=== PATIENT | female | born 1990 | race Hispanic/Latino ===

== ENCOUNTER 2017-01-05 23:56 | Emergency (ER) | payer OTHER ==
[~2017-01-05] VITALS: Ht 165.1 cm; Wt 71.7 kg
[2017-01-06] MEDS ORDERED: ZOLO50TA PO (00:16)
[2017-01-06 02:31] VITALS: BP 102/54
[2017-01-06] MEDS ORDERED: AUGMENTIN 875 MG TAB As Ordered ONE (02:49)
[2017-01-06] MEDS ORDERED: AUGM875T27 PO (02:49)
[2017-01-06] MEDS ORDERED: AUGMENTIN 875 MG TAB PO ONE (03:00)
== END 2017-01-06 02:54 | disposition home or self-care (01) ==
LOC: M ED 01-06 00:59
DX: O99.89 Other specified diseases and conditions complicating pregnancy, childbirth and the puerperium (principal); J02.0 Streptococcal pharyngitis; J04.0 Acute laryngitis; Z79.899 Other long term (current) drug therapy

== ENCOUNTER 2017-04-03 03:22 | Inpatient (IN) | payer OTHER ==
[~2017-04-03] VITALS: Ht 165.1 cm; Wt 75.0 kg
[2017-04-03] VITALS (9 sets, daily range): BP systolic 111–132; BP diastolic 55–89
[~2017-04-03 03:22] MED LIST: AUGM875T27 PO; ZOLO50TA PO
[2017-04-03] MEDS ORDERED: LACTATED RINGER'S 1000 ML IV STA (04:06)
[2017-04-03 04:19] LABS: MEAN CORPUSCULAR HEMOGLOBIN 28.7 pg (27.0-33.0); MEAN CORPUSCULAR HGB CONC 34.6 g/dl (32.0-36.5); MEAN CORPUSCULAR VOLUME 82.9 fl (80.0-96.0); RED CELL DISTRIBUTION WIDTH 15.7 % (11.5-14.5); WHITE BLOOD COUNT 5.3 K/mm3 (4.0-10.0)
--- NOTE | 2017-04-03 04:32 | HPEPDOC ---
Obstetrical History & Physical General Date of Admission Apr 03, 2017 at 03:44 History of Present Illness 26 y/o at 38+3 with painful reg ctx's. Pos FM. No LOF/VB. Checked by RN and was 8 cm/BBOW. My recheck was C/0/BBOW. AROM with clr fluid at my first exam. Uncomplicated OB hx. Depression, On Zoloft. Abdominoplasty 2012, XLAP vertical skin incision as a young teen (reason for abdominoplasty). Chief Complaint: Contractions, term Information Provided By: Patient Care Care: Good Care Dating Final EDC: Apr 14, 2017 Final EDC by: LMP, 1st trimester (US) Past Medical History Past Obstetrical History : Past Obstetrical History: Multigravida Type of Delivery: Spontaneous Vaginal Del. (x3, lasrgest 8 lbs, this one feels smaller) NIGHT NURSE History: No pertinent history Past Medical History Medical History depression well controlled Surgical History: Abdominoplasty, Other (XLAP age 11) Family History Significant Family History: No pertinent family hx Social History Social history no e/t/d, happily Marital Status: Family situation: Spouse/partner home Psychosocial History: No pertinent psych hx * Smoker: non-smoker Alcohol: Denies Drugs: denies Abuse Violence Screening Have you been hit/kicked/slapp: No Have you been sexually assault: No Imunizations Tdap status: declined Influenza Status: current Allergies Coded Allergies: No Known Drug Allergy (Verified Allergy, Unknown, 01/06/17) Medications Scheduled Amoxicillin/Clavulanate Potas (Augmentin 875-125 mg) 1 Tab Tab, 875 MG PO BID Sertraline Hcl (Zoloft) 50 Mg Tab, 50 MG PO DAILY Physical Examination Physical Examination GENERAL: Alert and oriented times three. BREAST: . FETUS: Is vertex (VTX) by sterile vaginal examination, 9/c/0, AROM with clr fluid EXTREMITIES: No edema. No clonus. EFW 3200 Laboratory Data 24H LABS Laboratory Tests 2 04/03/17 04:01: CBC/BMP Laboratory Tests 04/03/17 04:01 Red Blood Count 4.24, Mean Corpuscular Volume 82.9, Mean Corpuscular Hemoglobin 28.7, Mean Corpuscular Hemoglobin Concent 34.6, Red Cell Distribution Width 15.7 H Urine Culture: No Growth Pertinent Laboratoy Data Blood Type: O+ RBC Antibody Screen: Negative HIV: Negative Hepatitis B: Negative Hepatitis C: Unknown Rapid Plasma Reagin: Nonreactive Rubella: Immune Varicella: Immune Chlamydia/Gonorrhea: Negative Group B Streptococcus: Negative Quad Screen Test: Declined ([place] neg (female)) Cystic Fibrosis: Negative Glucose Tolerance Test: 100 Anatomy Ultrasound Placenta Location: Anterior Normal Anatomy: Yes Placenta Previa: No Vaginal Examination Dilation: 9 cm Effacement: 80+% Station: 0 Cervical Consistency: Soft Cervical Position: Anterior Presentation: Cephalic presentation Assessment Variability: Moderate Accelerations: Present (rare) Decelerations: None Tocometer Contractions: Yes Frequency: regular Duration: greater than 60 seconds Assessment/Plan Assessment Active labor. AROM done. GBS neg, should not take long. Plan Admit and orient. 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 Diet: clrs Group B Streptococcus (GBS) neg Labs and intravenous (IV) per unit protocol. Counseled on Pitocin and induction of labor (IOL). Lactated Ringers (LR): Bolus 1000 mL, then maint Anticipate normal spontaneous delivery () C-S as appropriate. Sessions SESSIONS,CHRISTOPH Kim MD Apr 03, 2017 04:32
[2017-04-03] MEDS ORDERED: PRENTAB9 PO (04:33)
[2017-04-03] MEDS ORDERED: OXYTOCIN 30 UNITS IN 0.9% NaCl 500ML IV BAG (J2590) As Ordered ONE (05:32)
[2017-04-03] MEDS ORDERED: OXYTOCIN DRIP 30 UNITS in APPROPRIATE DILUENT 1 EA IV SCH (06:28)
[2017-04-03] MEDS ORDERED: METOCLOPRAMIDE INJ 10MG/2ML VIAL (J2765) IV PRN (06:30)
[2017-04-03] MEDS ORDERED: RHOGAM 300 MCG (1500 IU) INJ (J2790) IM SCH (06:30)
[2017-04-03] MEDS ORDERED: MEASLES,MUMPS,RUBELLA VACCINE INJ (MMR-II) (90707) SC SCH (06:30)
[2017-04-03] MEDS ORDERED: DIBUCAINE 1% OINTMENT 30GM TOP PRN (06:30)
--- NOTE | 2017-04-03 06:48 | DNPDOC ---
[facility] Delivery Note Delivery Note DATE OF DELIVERY: Apr 03, 2017 at 03:44 PREDELIVERY DIAGNOSIS: 38 3/7 weeks' gestation and labor. POST DELIVERY DIAGNOSIS: Delivered. PROCEDURE: Spontaneous vaginal delivery I&C TECHNICIAN: ANESTHESIA: natural ESTIMATED BLOOD LOSS: 200 mL. FINDINGS: 7 pound 10 ounce female , Score 9/9 DELIVERY SUMMARY: Called to room and RN was delivering the infant. I was in the room for entire delivery but it was a very quick precipitous delivery that progressed very quickly. To abd, good tone and spont cry. Cored C/C by FOB. Placenta intact with slight traction, fundal massage. Pit going, fundus firm. Lac to right inner labia and 1st degr perineal. Labial lac approximates well and not bleeding, left alone. Perineal lac closed with 3-0 vicryl in standard fashion, good cosmesis/hemostasis. Uncomplicated. Sessions MD TYLER,CHRISTOPH Kim MD Apr 03, 2017 06:48
[2017-04-03] MEDS: IBUPROFEN 800 MG TAB PO PRN ×2 (06:58→14:09)
[2017-04-03] MEDS: DOCUSATE SODIUM 100 MG CAP PO SCH ×2 (09:00→21:00)
[2017-04-03] MEDS: ACETAMINOPHEN TAB 650MG DOSE (2X325MG) PO PRN ×2 (09:43→18:12)
[2017-04-03] MEDS: PRENATAL VITAMIN TAB PO SCH (09:46)
[2017-04-04] MEDS: IBUPROFEN 800 MG TAB PO PRN (00:38)
[2017-04-04] MEDS: ACETAMINOPHEN TAB 650MG DOSE (2X325MG) PO PRN (06:20)
[2017-04-04 06:37] VITALS: BP 97/55
[2017-04-04] MEDS: DOCUSATE SODIUM 100 MG CAP PO SCH (08:20)
[2017-04-04] MEDS: PRENATAL VITAMIN TAB PO SCH (08:21)
[2017-04-04] MEDS ORDERED: IBUP-1114 PO (09:41)
[2017-04-04] MEDS ORDERED: PRENTAB9 PO (09:41)
[2017-04-04] MEDS ORDERED: DIBU1OI TOP (09:41)
[2017-04-04] MEDS ORDERED: COLA100C3 PO (09:41)
[2017-04-04] MEDS ORDERED: ACET50TA PO (09:41)
== END 2017-04-04 11:35 | disposition home or self-care (01) | DRG 775 ==
LOC: M LDO 03:22 → M LDI 03:44 → M OBS 07:49
PROVIDERS: ADMIT Obstetrics & Gynecology; ATTEND Obstetrics & Gynecology
PROC: 10E0XZZ Delivery of Products of Conception, External Approach (ICD-10-PCS; principal; 2017-04-03)
PROC: 0HQ9XZZ Repair Perineum Skin, External Approach (ICD-10-PCS; 2017-04-03)
DX: O62.3 Precipitate labor (principal); Z37.0 Single live birth; Z3A.38 38 weeks gestation of pregnancy; O70.0 First degree perineal laceration during delivery